=== PATIENT | female | born 1980 | race Caucasian/White ===

== ENCOUNTER 2021-05-29 15:22 | Emergency (ER) | payer BC ==
[2021-05-29] MEDS ORDERED: Sodium Chloride 0.9% 1,000 ML IV ONE (15:34)
[2021-05-29] MEDS ORDERED: Sodium Chloride 0.9% 10 ML Syringe FLUSH PRN (15:34)
[2021-05-29] MEDS ORDERED: Ketorolac 30 MG/ML SDV IVPUSH ONE (16:20)
[2021-05-29 16:32] LABS: ANION GAP 12.7 mmol/L (5-15); CHLORIDE,CL 104 mmol/L (98-107); SODIUM,NA 139 mmol/L (136-145)
[2021-05-29] MEDS ORDERED: Iopamidol 755 Mg/ML 75 ML Bottle IVPUSH ONE (16:33)
[2021-05-29] MEDS: Sodium Chloride 0.9% 50 ML IV SCH ×2 (17:00→18:40)
[2021-05-29] MEDS ORDERED: Lidocaine 2% with EPINEPHrine 1:200,000 10 ML SDV ONE (17:47)
[2021-05-29] MEDS ORDERED: metroNIDAZOLE/Normal Saline 500 MG in Premix Bag 1 BAG IV ONE (17:56)
[2021-05-29] MEDS ORDERED: Ciprofloxacin in D5W 400 MG in Premix Bag 1 BAG IV ONE ×2 (17:56)
[2021-05-29] MEDS ORDERED: Acetaminophen/HYDROcodone 325-10 MG Tab PO ONE (18:03)
[2021-05-29] MEDS ORDERED: Morphine 4 MG/ML Syringe IVPUSH ONE (18:12)
[2021-05-29] MEDS ORDERED: Ondansetron 4 MG/2 ML SDV IVPUSH ONE (18:12)
== END 2021-05-29 21:17 | disposition home or self-care (01) ==
LOC: KA.ED 15:22
DX: K57.32 Diverticulitis of large intestine without perforation or abscess without bleeding (principal); Z88.5 Allergy status to narcotic agent; Z88.2 Allergy status to sulfonamides; Z91.048 Other nonmedicinal substance allergy status; Z88.8 Allergy status to other drugs, medicaments and biological substances
CPT/HCPCS: 36415; 74177; 80053; 81001; 83690; 84703; 85025; 96365; 96367; 96375; 99284-25; A9270-GY; J0744; J1885; J2270; J2405; J3490; J7030; Q9967